=== PATIENT | male | born 1950 | race Two or more races ===

== ENCOUNTER 2023-05-03 06:35 | Outpatient (CLI) | payer OTHER ==
[2023-05-03 08:14] LABS: HEMATOCRIT 39.3 % (39.0-48.0); HEMOGLOBIN 13.6 g/dL (13-16.00); MEAN CELL VOLUME 90.7 fL (80.0-100.00); MEAN CORPUSCULAR HEMOGLOBIN 31.5 pg (27.00-32.0); MEAN CORPUSCULAR HGB CONC 34.7 g/dl (32.0-36.0); PLATELET COUNT 137 K/uL (150-450); RED BLOOD COUNT 4.33 M/uL (4.00-6.00); RED CELL DISTRIBUTION WIDTH 13.2 % (11.5-14.5)
[2023-05-03 08:48] LABS: % SATURACION 26.1 % (20-50); ALBUMIN 3.7 gm/dL (3.4-5.0); BILIRUBIN TOTAL 0.57 mg/dL (0.3-1.2); CALCIUM 9.4 mg/dL (8.5-10.1); CREATININE SERUM 0.96 mg/dL (0.70-1.30); FERRITIN 231.1 NG/ML (26-388); GFR 76.78; GLOBULINA 3.9 G/DL (2.4-3.5); POTASSIUM 4.76 mEq/L (3.5-5.1); PROSTATIC SPECIFIC ANTIGEN 2.8 NG/ML (0.010-4.00); TOTAL PROTEIN 7.6 gm/dL (6.4-8.2); TSH 1.14 uIU/mL (0.358-3.74)
[2023-05-03 09:19] LABS: FOLIC ACID > 20.00 ng/ml (4.78-20); VITAMIN D3 25 HYDROXY 37.93 ng/ml (30-120)
[2023-05-04 08:10] LABS: ANTI THYROID PEROXIDASE 41 IU/mL (0-34)
[2023-05-04 10:08] LABS: TRANSFERIN 283 mg/dL (177-329)
[2023-05-04 16:11] LABS: hgb a 97.7 % (96.4-98.8); hgb a2 2.3 % (1.8-3.2); hgb f 0 % (0.0-2.0); hgb s 0 % (0.0)
[2023-05-05 09:55] LABS: MANUAL PLATELET COUNT 258
[2023-05-05 09:59] LABS: PLATELET ESTIMATE NORMAL (NORMAL)
== END 2023-05-03 06:36 | disposition home or self-care (01) ==
LOC: LAB 06:35
PROVIDERS: ATTEND Internal Medicine Hematology & Oncology
DX: D50.8 Other iron deficiency anemias (principal); R79.9 Abnormal finding of blood chemistry, unspecified; I10 Essential (primary) hypertension; R74.02 Elevation of levels of lactic acid dehydrogenase [LDH]; K76.89 Other specified diseases of liver; D63.8 Anemia in other chronic diseases classified elsewhere; D55.0 Anemia due to glucose-6-phosphate dehydrogenase [G6PD] deficiency; E55.9 Vitamin D deficiency, unspecified; D51.1 Vitamin B12 deficiency anemia due to selective vitamin B12 malabsorption with proteinuria; D51.0 Vitamin B12 deficiency anemia due to intrinsic factor deficiency; E03.8 Other specified hypothyroidism; E06.3 Autoimmune thyroiditis; R97.0 Elevated carcinoembryonic antigen [CEA]; R97.8 Other abnormal tumor markers; R97.20 Elevated prostate specific antigen [PSA]; D69.59 Other secondary thrombocytopenia; E11.22 Type 2 diabetes mellitus with diabetic chronic kidney disease

== ENCOUNTER → 2024-03-07 06:18 | Outpatient (CLI) | payer OTHER ==
[2024-03-07 07:23] LABS: HEMATOCRIT 39.6 % (39.0-48.0); HEMOGLOBIN 13.9 g/dL (13-16.00); MEAN CELL VOLUME 88.6 fL (80.0-100.00); PLATELET COUNT 137 K/uL (150-450); RED BLOOD COUNT 4.48 M/uL (4.00-6.00); RED CELL DISTRIBUTION WIDTH 12.8 % (11.5-14.5)
[2024-03-07 08:22] LABS: ALBUMIN 3.9 gm/dL (3.4-5.0); BILIRUBIN TOTAL 0.44 mg/dL (0.3-1.2); CREATININE SERUM 0.93 mg/dL (0.70-1.30); GFR 79.42; GLOBULINA 3.6 G/DL (2.4-3.5); POTASSIUM 4.54 mEq/L (3.5-5.1); PROSTATIC SPECIFIC ANTIGEN 3.87 NG/ML (0.010-4.00); TOTAL PROTEIN 7.5 gm/dL (6.4-8.2)
[2024-03-07 10:29] LABS: FOLIC ACID > 20.00 ng/ml (4.78-20); VITAMIN D3 25 HYDROXY 40.59 ng/ml (30-120)
[2024-03-09 07:55] LABS: PLATELET ESTIMATE NORMAL (NORMAL)
[2024-03-09 07:56] LABS: MANUAL PLATELET COUNT 322
== END | disposition home or self-care (01) ==
LOC: LAB 06:18
PROVIDERS: ATTEND Internal Medicine Hematology & Oncology
DX: D69.59 Other secondary thrombocytopenia (principal); I10 Essential (primary) hypertension; E11.22 Type 2 diabetes mellitus with diabetic chronic kidney disease; N40.1 Benign prostatic hyperplasia with lower urinary tract symptoms; N41.9 Inflammatory disease of prostate, unspecified; N40.3 Nodular prostate with lower urinary tract symptoms; E06.5 Other chronic thyroiditis; E04.2 Nontoxic multinodular goiter; D50.8 Other iron deficiency anemias; R79.9 Abnormal finding of blood chemistry, unspecified; R74.02 Elevation of levels of lactic acid dehydrogenase [LDH]; K76.89 Other specified diseases of liver; R97.0 Elevated carcinoembryonic antigen [CEA]